=== PATIENT | female | born 1985 | race Caucasian/White ===

== ENCOUNTER 2023-12-14 22:28 | Emergency (ER) | payer OTHER, SELFPAY ==
[2023-12-14 22:32] VITALS: BP 137/102; PULSE 115; RESP 18; TEMP 36.2; O2SAT 96
--- NOTE | 2023-12-14 22:33 | ED_ITS ---
HPI - Dental/Oral General Chief complaint: Dental/Oral Stated complaint: tooth pain Time Seen by Provider: 12/14/23 22:32 Source: patient Mode of arrival: ambulatory Limitations: no limitations History of Present Illness HPI Narrative: this is a 38-year-old female who presents with dental pain right upper molar ar ea with a cracked tooth and has not been able to get into her dentist for treatment. There is some surrounding gum inflammation right submandibular gland swelling and radiation into her right jaw area with no fever chills no shortness of breath. MD Complaint: tooth pain Teeth map: 1. cracked to with surrounding gum inflammation Onset (ago): day(s) Duration: constant Severity: moderate Severity scale (1-10): 7 Relieving factors: NSAIDs Context: history of dental caries Related Data Allergies Allergy/AdvReac Type Severity Reaction Status Date / Time No Known Allergies Allergy Verified 12/14/23 22:35 Review of Systems Review of Systems: All systems reviewed & are unremarkable except as noted in HPI and below PMFSH Past Medical History Medical History Patient denies medical problems Exam Const: General: healthy appearing Nutritional Appearance: well nourished Orientation/consciousness: patient oriented x3 Limitations: no limitations HENMT: Other: right upper molar dental pain and discomfort with surrounding gum inflammation tender right submandibular gland Chest: Chest palpation & inspection: normal inspection of the chest Resp: Effort & Inspection: normal respiratory effort Auscultation: clear to auscultation bilaterally Cardio: Rate: regular rate Rhythm: regular rhythm GI: Auscultation: normal bowel sounds Course Course Emergency Course: patient received 60mg IM Toradol for pain relief, and was given a dose 500mg PO oxacillin. Critical Care Time Critical Care Time Critical Care Time: No Discharge Plan Discharge Clinical Impression: Dental abscess Patient Disposition: Home, Self-Care Condition: Stable Instructions: Antibiotic Form, Dental Abscess (ED), Toothache (ED) Additional Instructions: advised to take medicine as prescribed and follow up with primary if symptoms persist or worsen, and follow with a dentist as soon as possible. Prescriptions: New naproxen 500 mg tablet 500 mg PO BID PRN (Reason: pain) Qty: 14 0RF amoxicillin 500 mg tablet 500 mg PO TID Qty: 20 0RF Follow-up/Referrals: UNKNOWN,DOCTOR [Primary Care Provider] - Stand Alone Forms: Work/School Release IP Time of Disposition: 22:39
[2023-12-14] MEDS: AMOXICILLIN 500 MG CAPSULE PO (22:44)
[2023-12-14] MEDS: KETOROLAC (*BKC) 60 MG/2 ML VIAL IM (22:44)
== END 2023-12-14 23:09 | disposition home or self-care (01) ==
LOC: CHSED 22:42
PROVIDERS: Emergency Provider Emergency Medicine; PCP Physician Assistant
DX: K04.7 Periapical abscess without sinus (principal)
CPT/HCPCS: 96372; 99283; A9270; J1885